=== PATIENT | male | born 2000 | race Caucasian/White ===

== ENCOUNTER 2022-07-11 22:14 | Outpatient (CLI) | payer OTHER, SELFPAY | END 2022-07-11 22:15 | disposition home or self-care (01) | LOC: AMB 08-13 19:15 | PROVIDERS: PCP Family Medicine; Visit Provider Internal Medicine | DX: R45.851 Suicidal ideations (principal) | CPT/HCPCS: A0425; A0427 ==

== ENCOUNTER 2022-07-11 22:37 | Emergency (ER) | payer OTHER, SELFPAY ==
[2022-07-11 22:46] VITALS: BP 121/78; PULSE 75; TEMP 36.6; O2SAT 95
--- NOTE | 2022-07-11 22:49 | ED.PSYCH ---
HPI - Psych General Chief Complaint: Psychiatric Problem/Disorder Stated Complaint: Mental Health Time Seen by Provider: 07/11/22 22:40 History of Present Illness HPI Narrative: Pt is a 21 year old brought in [facility] with thoughts of suicide. 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 After that performance he plans to kill himself by jumping from a height. Pt has not hurt himself to this point. No drugs or alcohol use. No self harm behaviors. No previous suicide attempts but has purposefully hit his head as a child. Pt has a history of anxiety and depression and is on Paxil 20 mg daily. No other life changes recently. Has been feeling depressed for quite some time. Related Data Home Medications Medication Instructions Recorded Confirmed paroxetine HCl 20 mg tablet mg PO 07/11/22 Allergies Allergy/AdvReac Type Severity Reaction Status Date / Time No Known Drug Allergies Allergy Verified 07/11/22 22:52 Review of Systems Status of ROS: Reports: 10 or more systems reviewed and unremarkable except as noted in History and below [facility] Medical History (Updated 07/12/22 @ 03:41 by Pablo Prieto MD) Anxiety Depression Social History Smoking Status: Never smoker Do you use any of these nicotine containing products: None Second hand tobacco smoke exposure: No How often do you have a drink containing alcohol: never How often do you have six or more drinks on one occasion: Never AUDIT-C Alcohol total score: 0 Non-prescribed substance use: denies use Exam Narrative: Exam Narrative: EXAM GENERAL: Patient appears comfortable and well. EYES: No scleral icterus. ENT: Tympanic membranes and oropharynx normal. THYROID: no thyroid nodules or thyromegaly. LYMPH: No supraclavicular or cervical lymphadenopathy. SKIN: Visible skin seen during exam normal or with benign process only. EXT: No dependent lower extremity pedal edema. HEART: Regular rate and rhythm with no murmurs, rubs, or gallops. LUNGS: Clear to auscultation bilaterally with no crackles or wheezes. ABD: Soft, non tender, non distended. PSYCH: Good eye contact, speech is not pressured. Const: Vital Signs, click to edit/add: Vital Signs - 24 hr 07/11/22 22:46 Temperature 97.8 F Pulse Rate [Left] 75 Blood Pressure [Le ft Upper Arm] 121/78 Pulse Oximetry 95 Oxygen Delivery Me thod Room Air Course Course Hospital Course: Pt seen and examined. Appropriate laboratory studies collected. DEC requested. Reevaluation(s) Reevaluation #1: Lab workup reassuring. DEC directing us to discharge. Time: 03:40 Vital Signs Vital signs: Initial Vital Signs Temperature 97.8 F 07/11/22 22:46 Temperature Source Temporal Artery Scan 07/11/22 22:46 Pulse Rate 75 07/11/22 22:46 Blood Pressure 121/78 07/11/22 22:46 Blood Pressure Mean 92 07/11/22 22:46 Blood Pressure Position Sitting 07/11/22 22:46 Pulse Oximetry 95 07/11/22 22:46 Oxygen Delivery Method 07/11/22 22:46 Vital Signs Temperature 97.8 F 07/11/22 22:46 Pulse Rate 75 07/11/22 22:46 Blood Pressure 121/78 07/11/22 22:46 Pulse Oximetry 95 07/11/22 22:46 Oxygen Delivery Method 07/11/22 22:46 Temperature 97.8 F 07/11/22 22:46 Pulse Rate 75 07/11/22 22:46 Blood Pressure 121/78 07/11/22 22:46 Pulse Oximetry 95 07/11/22 22:46 Oxygen Delivery Method 07/11/22 22:46 MDM - Psych MDM Narrative Medical decision making narrative: Pt presents with suicidal ideation. Normal lab work up. Pt seen by DEC and determined the patient can go home. Safety plan in place. Pt contracts for safety and will be discharged to home with outpt follow up. Differential Diagnosis Differential diagnosis: Likely acute psychosis, suicidal ideation, bipolar disorder, depression and acute anxiety Lab Data Labs: Lab Results 07/11/22 07/11/22 07/11/22 Range/Units 22:53 23:00 23:00 WBC 5.45 (4.50-11.00) K/uL RBC 4.54 (4.30-5.90) m/uL Hgb 14.4 (13.5-17.5) gm/dL Hct 41.7 (37.0-53.0) % MCV 92 (80-100) fL MCH 32 (26-34) pg MCHC 35 (32-36) gm/dL RDW Coeff of Tom 11.8 (11.5-15.5) % Plt Count 242 (140-440) K/uL Neut % (Auto) 57.8 (42.0-72.0) % Lymph % (Auto) 32.3 (20-44) % [place] % (Auto) 6.6 (0.0-11.0) % Eos % (Auto) 1.8 (0.0-7.0) % Baso % (Auto) 0.9 (0.0-3.0) % Neut # (Auto) 3.15 (1.7-7.0) K/uL Lymph # (Auto) 1.76 (0.90-2.90) K/uL [place] # (Auto) 0.40 (0.00-0.90) K/UL Eos # (Auto) 0.10 (0.00-0.50) K/uL Baso # (Auto) 0.05 (0.00-0.30) K/uL Abs Immat Gran (auto) 0.03 (0.00-0.30) K/uL Imm/Tot Granulo (auto) 0.6 % Sodium 139 (135-149) mmol/L Potassium 4.2 (3.6-5.1) mmol/L Chloride 102 (96-114) mmol/L Carbon Dioxide 28 (20-32) mmol/L BUN 12 (5-24) mg/dL Creatinine 1.0 (0.6-1.2) mg/dL Estimated GFR 111 ml/min Glucose 90 (60-115) mg/dL Calcium 9.6 (8.7-10.8) mg/dL Total Bilirubin 0.3 (0.1-1.5) mg/dL AST 21 (12-35) U/L ALT 16 (4-50) U/L Alkaline Phosphatase 94 (65-260) U/L Total Protein 7.8 (6.0-8.3) g/dL Albumin 5.1 H (3.3-5.0) g/dL Salicylates < 1.0 L (1.0-10) mg/dL Urine Opiates Screen (Negative) Ur Oxycodone Screen (Negative) Urine Methadone Screen (Negative) Ur Propoxyphene Screen (Negative) Acetaminophen < 10.0 L (10.0-30.0) ug/mL Ur Barbiturates Screen (Negative) U Tricyclic Antidepress (Negative) Ur Phencyclidine Scrn (Negative) Ur Amphetamines Screen (Negative) U Methamphetamines Scrn (Negative) U Benzodiazepines Scrn (Negative) Urine Cocaine Screen (Negative) U Marijuana (THC) Screen (Negative) Ur Drug Screen Comment Ethyl Alcohol < 0.01 L (0.01-0.03) % SARS-CoV-2 (PCR) Negative SARS-CoV-2 (Negative) Influenza Type A (PCR) Negative PCR FLU A (Negative) Influenza Type B (PCR) Negative PCR FLU B (Negative) 07/12/22 Range/Units 01:00 WBC (4.50-11.00) K/uL RBC (4.30-5.90) m/uL Hgb (13.5-17.5) gm/dL Hct (37.0-53.0) % MCV (80-100) fL MCH (26-34) pg MCHC (32-36) gm/dL RDW Coeff of Tom (11.5-15.5) % Plt Count (140-440) K/uL Neut % (Auto) (42.0-72.0) % Lymph % (Auto) (20-44) % [place] % (Auto) (0.0-11.0) % Eos % (Auto) (0.0-7.0) % Baso % (Auto) (0.0-3.0) % Neut # (Auto) (1.7-7.0) K/uL Lymph # (Auto) (0.90-2.90) K/uL [place] # (Auto) (0.00-0.90) K/UL Eos # (Auto) (0.00-0.50) K/uL Baso # (Auto) (0.00-0.30) K/uL Abs Immat Gran (auto) (0.00-0.30) K/uL Imm/Tot Granulo (auto) % Sodium (135-149) mmol/L Potassium (3.6-5.1) mmol/L Chloride (96-114) mmol/L Carbon Dioxide (20-32) mmol/L BUN (5-24) mg/dL Creatinine (0.6-1.2) mg/dL Estimated GFR ml/min Glucose (60-115) mg/dL Calcium (8.7-10.8) mg/dL Total Bilirubin (0.1-1.5) mg/dL AST (12-35) U/L ALT (4-50) U/L Alkaline Phosphatase (65-260) U/L Total Protein (6.0-8.3) g/dL Albumin (3.3-5.0) g/dL Salicylates (1.0-10) mg/dL Urine Opiates Screen Negative (Negative) Ur Oxycodone Screen Negative (Negative) Urine Methadone Screen Negative (Negative) Ur Propoxyphene Screen Negative (Negative) Acetaminophen (10.0-30.0) ug/mL Ur Barbiturates Screen Negative (Negative) U Tricyclic Antidepress Negative (Negative) Ur Phencyclidine Scrn Negative (Negative) Ur Amphetamines Screen Negative (Negative) U Methamphetamines Scrn Negative (Negative) U Benzodiazepines Scrn Negative (Negative) Urine Cocaine Screen Negative (Negative) U Marijuana (THC) Screen Negative (Negative) Ur Drug Screen Comment See Note Ethyl Alcohol (0.01-0.03) % SARS-CoV-2 (PCR) (Negative) Influenza Type A (PCR) (Negative) Influenza Type B (PCR) (Negative) Discharge Plan Discharge Clinical Impression: Depression Patient Disposition: Home, Self-Care Condition: Stable Instructions: Depression (ED) Additional Instructions: Instructions and follow up per AUG assessment Activity Level: No Restrictions Discharge Diet: Regular Prescriptions: No Action paroxetine HCl 20 mg tablet PO Follow Up/Referrals: Jevon Olmedo MD [Primary Care Provider] - Stand Alone Forms: Proficient Info Instructions
[2022-07-11 23:12] LABS: Basophils Absolute Auto 0.05 K/uL (0.00-0.30); Basophils Percent Auto 0.9 % (0.0-3.0); Eosinophils Percent Auto 1.8 % (0.0-7.0); Hematocrit 41.7 % (37.0-53.0); Hemoglobin* 14.4 gm/dL (13.5-17.5); Immature Granulocytes Abs Auto 0.03 K/uL (0.00-0.30); Immature Granulocytes Pct Auto 0.6 %; Lymphocytes Absolute Auto 1.76 K/uL (0.90-2.90); Lymphocytes Percent Auto 32.3 % (20-44); Mean Corpuscular HGB Conc 35 gm/dL (32-36); Mean Corpuscular Hemoglobin 32 pg (26-34); Mean Corpuscular Volume 92 fL (80-100); Monocytes Percent Auto 6.6 % (0.0-11.0); Neutrophils Absolute Auto 3.15 K/uL (1.7-7.0); Neutrophils Percent Auto 57.8 % (42.0-72.0); Platelet Count* 242 K/uL (140-440); RDW Coefficient of Variation % 11.8 % (11.5-15.5); Red Blood Count 4.54 m/uL (4.30-5.90); White Blood Count* 5.45 K/uL (4.50-11.00)
[2022-07-11 23:16] LABS: Slide Review Reflex No
[2022-07-11 23:26] LABS: Albumin* 5.1 g/dL (3.3-5.0); Chloride* 102 mmol/L (96-114); Sodium* 139 mmol/L (135-149)
[2022-07-11 23:27] LABS: Potassium* 4.2 mmol/L (3.6-5.1)
[2022-07-11 23:28] LABS: Estimated Glomerular Filt Rate 111 ml/min
[2022-07-11 23:29] LABS: Alanine Aminotransferase* 16 U/L (4-50); Alkaline Phosphatase* 94 U/L (65-260); Aspartate Amino Transferase* 21 U/L (12-35); Bilirubin Total* 0.3 mg/dL (0.1-1.5); Blood Urea Nitrogen* 12 mg/dL (5-24); Calcium* 9.6 mg/dL (8.7-10.8); Carbon Dioxide* 28 mmol/L (20-32); Glucose* 90 mg/dL (60-115); Total Protein* 7.8 g/dL (6.0-8.3)
[2022-07-11 23:30] LABS: Acetaminophen* < 10.0 ug/mL (10.0-30.0); Ethanol* < 0.01 % (0.01-0.03); Salicylate* < 1.0 mg/dL (1.0-10)
[2022-07-11 23:49] LABS: PCR FLU A Negative PCR FLU A (Negative); PCR FLU B Negative PCR FLU B (Negative)
[2022-07-11 23:51] LABS: SARS PCR* Negative SARS-CoV-2 (Negative)
--- NOTE | 2022-07-12 00:30 | ED.NURSE ---
Pt brought water and asked if he would like anything to eat. Pt states he would just like crackers at this time.
[2022-07-12 01:15] LABS: Amphetamine Screen Urine Negative (Negative); Barbiturate Screen Urine Negative (Negative); Benzodiazepines Screen Urine Negative (Negative); Cannabinoid Screen Urine Negative (Negative); Cocaine Screen Urine Negative (Negative); Methadone Screen Urine Negative (Negative); Methamphetamines Screen Urine Negative (Negative); Opiate Screen Urine Negative (Negative); Oxycodone Screen Urine Negative (Negative); Phencyclidine Screen Urine Negative (Negative); Tricyclic Antidepressant Urine Negative (Negative)
[2022-07-12 02:30] VITALS: BP 120/82; PULSE 82; RESP 16; TEMP 36.8; O2SAT 98
--- NOTE | 2022-07-12 02:30 | ED.NURSE ---
DEC assessment started.
--- NOTE | 2022-07-12 02:37 | ED.NURSE ---
Pt states he is hungry. Pt brought peanut butter sandwich, diced peaches, pudding, hot cocoa, and water. DEC assessment starting.
--- NOTE | 2022-07-12 04:18 | ED.NURSE ---
Per DEC assessment, pt to be discharged home. RN awaiting safety plan and in to check on pt. RN asks how pt is and pt states I don't think I'm going to be okay. Call to DEC metal burnisher for check up on safety plan and to express concerns that pt had told RN earlier about suicidal feelings. DEC metal burnisher asking RN to return to room and ask pt again if he is currently suicidal once more. RN in to pt room to speak to pt about suicidal thoughts and if pt will hurt himself or kill himself upon returning home. RN asks pt if he feels safe at home. Pt shrugs and states not really. RN asks pt if he will kill himself upon returning home. Pt nods head. RN asks pt if he has a plan and pt nods head and says yeah. RN asks pt what plan is, and pt shrugs shoulders and states, I have a number of ideas. RN asks pt if he would feel comfortable speaking about this again with DEC metal burnisher and pt says yes, that might be a good idea. DEC metal burnisher updated and reevaluating pt. DEC metal burnisher talking with pt and asks RN to join conversation a few minutes later. RN in room with pt and DEC metal burnisher. DEC metal burnisher speaking with pt about plan and pt again stating concerns for safety with DEC metal burnisher. RN speaking with DEC metal burnisher following reevaluation, and metal burnisher states it would be a good plan to let pt stay in ER for few more hours until daylight and reevaluate situation at that time. DEC metal burnisher states they would be more than happy to reassess pt at this time to ensure pt is safe to go home. DEC metal burnisher also states pt may be a good candidate for a crisis stabilization center, such as [facility]. updated.
--- NOTE | 2022-07-12 08:15 | ED.NURSE ---
Pt resting in bed with eyes closed. Repositioning self independently. Will allow to sleep.
[2022-07-12 08:43] VITALS: BP 111/62; PULSE 65; RESP 20; TEMP 36.4; O2SAT 94
--- NOTE | 2022-07-12 08:49 | ED.NURSE ---
Pt awake. States he is feeling so-so. Aske pt if he was still having feelings of suicide and pt stated yes. When asked about if he had a plan pt stated yes. When asked about what his plan was, pt stated I want to jump off something high. Offerered therapeutic communication and told pt that this nurse is concerned and would like for pt to find help and pt was agreeable. Dr Ramsay updated and in speaking with pt. Meal tray ordered for pt.
--- NOTE | 2022-07-12 09:01 | ED.NURSE ---
DEC contacted and pt placed in que for reassessment
--- NOTE | 2022-07-12 10:24 | ED.NURSE ---
pt continues to feel suicidal. will try to find hospitalization per AUG recommendation
--- NOTE | 2022-07-12 13:00 | ED.NURSE ---
Pt's chart faxed to [place] for review.
[2022-07-12 14:04] VITALS: BP 111/66; PULSE 73; RESP 18; TEMP 36.5; O2SAT 97
--- NOTE | 2022-07-12 14:06 | ED.NURSE ---
[facility] accepted to [facility]. EMS called for transport.
--- NOTE | 2022-07-12 14:36 | ED.NURSE ---
Report to SID Humphries at [place]. [place] [facility].
== END 2022-07-12 14:38 | disposition home or self-care (01) ==
PROVIDERS: Emergency Provider Internal Medicine; PCP Family Medicine
DX: R45.851 Suicidal ideations (principal); F41.8 Other specified anxiety disorders
CPT/HCPCS: 36415; 80053; 80143; 80179; 80306; 82077; 85025; 87631; 99283

== ENCOUNTER 2022-07-12 14:20 | Outpatient (CLI) | payer OTHER, SELFPAY | END 2022-07-12 14:21 | disposition home or self-care (01) | LOC: AMB 08-04 11:22 | PROVIDERS: PCP Family Medicine; Visit Provider Emergency Medicine Emergency Medical Services | DX: F32.9 Major depressive disorder, single episode, unspecified (principal); R45.851 Suicidal ideations | CPT/HCPCS: A0425; A0428 ==

== ENCOUNTER 2024-04-23 08:25 | Outpatient (CLI) | payer MEDICAID, SELFPAY ==
--- OUTSIDE RECORDS SUMMARY | 2024-04-24 03:31 | XMS_ITS | Encounter Summary ---
Author Organization [facility] Address [address] [place] [address] Care Team Providers Care Donor Services Technician Name Role Phone No Contact, Pcp Primary Care Provider Unavailabl e Encounter Details Date Type Department Care Team (Late st Contact Info) Description 04/23/2024 Hospital Encounter [facility] [place] Bed Planning [phone] Gabino Mckinney M.D. [address] [place] [id number] Social History Tobacco Use Types Packs/Day Years Used Date Smoking Tobacco: Never Smokeless Tobacco: Never PHQ-2 Answer Date Recorded PHQ-2 Score 0 07/15/2022 Depression Answer Date Recor ded PHQ-9 Total Score (max 27) 2 07/15 Nutrition Answer Date Recorded Nutrition: EVOO Fat Source Unknown 11/08 Nutrition: Servings of Fruits/Vegetables per Day Not on file 11/08/2020 Dental Answer Date Recorded Dental: Regular Dentist Unknown 11/09/19 23 Sex and Gender Information Value Date Recorded Sex Assigned at Not on file Gender Identity Not on file Sexual Orientation Not on file documented as of this encounter Plan of Treatment Not on file documented as of this encounter Visit Diagnoses Not on filedocumented in this encounter Additional Health Concerns Assessment Noted Time PHQ-9 Depression Total Score: 2 07/15/20 22 2:00 PM [facility] documented as of this encounter Care Teams Donor Services Technician Relationship Specialty Start Date End Date No Contact, Pcp PCP - General Family Medicine 07/12/20 documented as of this encounter
--- OUTSIDE RECORDS SUMMARY | 2024-04-24 03:31 | XMS_ITS | Encounter Summary ---
Author Organization [facility] Address [address] [place] [address] Care Team Providers Care Felt Cementer Name Role Phone No Contact, Pcp Primary Care Provider Unavailabl e Encounter Details Date Type Department Care Team (Latest Contact Info) Description 04/23/2024 Intake [facility] Social History Tobacco Use Types Packs/Day Years [...] Total Score: 2 07/15/20 22 2:00 PM PSYCHOLOGICAL AIDE documented as of this encounter Care Teams Felt Cementer Relationship Specialty Start Date End Date No Contact, Pcp PCP - General Family Medicine 07/12/20 documented as of this encounter
--- OUTSIDE RECORDS SUMMARY | 2024-04-24 03:31 | XMS_ITS | Referral Summary ---
Author Organization [facility] Address [address] [place] [address] Care Team Providers Care Enrollment Coordinator Name Role Phone No Contact, Pcp Primary Care Provider Unavailabl e Source Comments Patient records contain information from all sites at [facility]. For routine questions regarding patient records, call [phone] during business hours, M-F 8:00 AM - 5:00 PM Central Time. Record requests for emergency care only can be directed to [phone] at any time.[facility] Encounters Date Type Department Care Team Description 04/23/2024 Hospital Encounter [facility] [place] Bed Planning [phone] Gabino Mckinney M.D. 04/23/2024 Intake [facility] from Last 3 Months Allergies No known active allergies Medications Medication Sig Dispensed Refills Start Date End Date Status albuterol (PROVENTIL HFA,VENTOLIN HFA) 90 mcg/actuation inhaler Inhale 2 puffs every 4 (four) hours as needed. 11/15/2014 Active PARoxetine (PAXIL) 20 mg tablet Take 1 tablet (20 mg total) by mouth daily. 30 tablet 07/15/2022 Active traZODone (DESYREL) 50 mg tablet Take 0.5 tablets (25 mg total) by mouth at bedtime as needed for sleep. Pharmacy please provide pill cutter. 30 tablet 07/15/2022 Active Active Problems Problem Noted Date Diagnosed Date Coping Ineffective 07/15/2022 Resolved Problems Problem Noted Date Diagnosed Date Resolved Date Suicide Ideation 07/12/2022 07/16/2022 Immunizations Name Administration Dates Next Due MCV4 (Menactra)(Discontinued) 11/15/2014 Tdap 11/15/2014 Social History Tobacco Use Types Packs/Day Years [...] on file Sexual Orientation Not on file Last Filed Vital Signs Vital Sign Reading Time Taken Comments Blood Pressure 120/70 07/16/2022 9:00 AM [employer] Pulse 70 07/16/2022 9:00 AM [employer] Temperature 36.6 ??C (97.9 ??F) 07/16/2022 9:00 AM CS T Respiratory Rate 18 07/16/2022 9:00 AM [employer] Oxygen Saturation 98% 07/16/2022 9:00 AM W[employer] Inhaled Oxygen Concentration - - Weight 68 kg (149 lb 14.6 oz) 07/12/2022 5:07 PM CDT Height 177 cm (5' 9.69) 07/12/2022 5:07 PM CDT Body Mass Index 21.71 07/12/2022 5:07 PM CDT Plan of Treatment Not on file Advance Directives For more information, please contact: [phone] * Full Code (Latest Code Status on File) Date Activated Date Inactivated Comments 07/12/2022 5:34 PM 07/16/2022 1:41 PM Question Answer Comments Full Code: Not Discussed Due to: Not medically appropriate Care Teams Enrollment Coordinator Relationship Specialty Start Date End Date No Contact, Pcp PCP - General Family Medicine 07/12/20
--- OUTSIDE RECORDS SUMMARY | 2024-04-24 03:31 | XMS_ITS ---
Author Organization [facility] Address [address] [place] [address] Care Team Providers Care It Applications Analyst Name Role Phone Unavailable Unavailable Unavailable Surgery Details Not on file Complications Check Surgery Details section. Procedure Estimated Blood Loss Check Surgery Details section. Procedure Findings Check Surgery Details section. Procedure Specimens Taken Check Surgery Details section.
--- OUTSIDE RECORDS SUMMARY | 2024-04-24 03:31 | XMS_ITS | Clinical Summary ---
Author Organization [facility] Address [address] [place] [address] Care Team Providers Care Kiln Labourer Name Role Phone No Contact, Pcp Primary Care Provider Unavailabl e Source Comments Patient records contain information from all sites at [facility]. For routine questions regarding patient records, call [phone] during business hours, M-F 8:00 AM - 5:00 PM Central Time. Record requests for emergency care only can be directed to [phone] at any time.[facility] Allergies No known active allergies Medications Medication [...] Date Resolved Date Suicide Ideation 07/12/2022 07/16/2022 Encounters Date Type Department Care Team Description 04/23/2024 Hospital Encounter [facility] Bed Planning [phone] Gabino Mckinney M.D. 04/23/2024 Intake [facility] from Last 3 Months Immunizations Name Administration Dates Next Due MCV4 [...] Comments Blood Pressure 120/70 07/16/2022 9:00 AM [facility] [employer] [employer] Pulse 70 07/16/2022 9:00 AM [employer] Temperature 36.6 ??C (97.9 ??F) 07/16/2022 9:00 AM CS T Respiratory Rate 18 07/16/2022 9:00 AM [employer] Oxygen Saturation 98% 07/16/2022 9:00 AM [employer] Inhaled Oxygen Concentration - - Weight 68 kg (149 lb 14.6 oz) 07/12/2022 5:07 PM CDT Height 177 cm (5' 9.69) 07/12/2022 5:07 PM CDT Body Mass Index 21.71 07/12/2022 5:07 PM CDT Plan of Treatment Health Maintenance Due Date Last Done Comments HIV Screening 2002 Hepatitis C Screening 2002 TB Screening during Well Child Visit 2002 1 week Well Child Check-Up 2002 1 month Well Child Check-Up 2002 2 month Well Child Check-Up 2002 4 month Well Child Check-Up 01/15/2003 6 month Well Child Check-Up 03/17/2003 9 month Well Child Check-Up 06/17/2003 12 month Well Child Check-Up 09/17/2003 15 month Well Child Check-Up 12/17/2003 18 month Well Child Check-Up 03/17/2004 2 year Well Child Check-Up 09/17/2004 30 month Well Child Check-Up 03/17/2005 3 year Well Child Check-Up 09/17/2005 Well Child Check-Up Completed in Past Year 09/17/2005 4 year Well Child Check-Up 09/17/2006 5 year Well Child Check-Up 09/17/2007 6 year Well Child Check-Up 09/17/2008 7 year Well Child Check-Up 09/17/2009 8 year Well Child Check-Up 09/17/2010 9 year Well Child Check-Up 09/17/2011 10 year Well Child Check-Up 09/17/2012 11 year Well Child Check-Up 09/17/2013 12 year Well Child Check-Up 09/17/2014 13 year Well Child Check-Up 09/17/2015 14 year Well Child Check-Up 09/17/2016 15 year Well Child Check-Up 09/17/2017 16 year Well Child Check-Up 09/17/2018 17 year Well Child Check-Up 09/17/2019 18 year Well Child Check-Up 09/17/2020 19 year Well Child Check-Up 09/17/2021 20 year Well Child Check-Up 09/17/2022 COVID-19 Vaccine ( season) 2023 01/05/2023, 01/26/2021, 12/01/2020 Depression Screening (Annual PHQ-2) 09/07/2023 21 year Well Child Check-Up 09/17/2023 Well Child Check-Up ([facility]) 09/17/2023 Influenza Vaccine (#1) 2024 07/26/2007 DTaP,Tdap,and Td Vaccines (7 - Td or Tdap) 11/15/2024 11/15/2014, 05/02/2008, 06/02/2005, Additional history exists Pneumococcal vaccine (0-64 years) Aged Out 06/14/2003, 03/09/2003, 2002 No longer eligible based on patient's age to complete this topic Hepatitis B Vaccines Completed 06/02/2005, 03/09/2003, 2002 HPV Vaccines Completed 10/04/2019, 09/24/2017 Meningococcal Vaccine Completed 10/04/2019, 015 Advance Directives For more information, please contact: [phone] * Full Code (Latest Code Status on File) Date Activated Date Inactivated Comments 07/12/2022 5:34 PM 07/16/2022 1:41 PM Question Answer Comments Full Code: Not Discussed Due to: Not medically appropriate Care Teams Kiln Labourer Relationship Specialty Start Date End Date No Contact, Pcp PCP - General Family Medicine 07/12/20
== END 2024-04-23 08:26 | disposition home or self-care (01) ==
LOC: AMB 04-24 03:29
PROVIDERS: PCP Family Medicine; Visit Provider Family Medicine
DX: R45.851 Suicidal ideations (principal)
CPT/HCPCS: A0425; A0428; A0429

== ENCOUNTER 2024-04-23 09:07 | Emergency (ER) | payer MEDICAID, SELFPAY ==
[2024-04-23 09:10] VITALS: BP 112/73; PULSE 60; RESP 18; TEMP 36.1; O2SAT 97; BMI 22.2
[2024-04-23 11:04] LABS: Amphetamine Screen Urine Negative (Negative); Barbiturate Screen Urine Negative (Negative); Benzodiazepines Screen Urine Negative (Negative); Cannabinoid Screen Urine Negative (Negative); Cocaine Screen Urine Negative (Negative); Methadone Screen Urine Negative (Negative); Methamphetamines Screen Urine Negative (Negative); Opiate Screen Urine Negative (Negative); Oxycodone Screen Urine Negative (Negative); Phencyclidine Screen Urine Negative (Negative); Tricyclic Antidepressant Urine Negative (Negative)
--- NOTE | 2024-04-23 11:16 | ED_ITS ---
HPI - General Adult General Chief complaint: Psychiatric Problem/Disorder Stated complaint: Mental health Time Seen by Provider: 04/23/24 10:24 Source: patient Mode of arrival: ambulatory Limitations: no limitations History of Present Illness HPI narrative: 23-year-old male to female transitioning patient presenting today with suicidal ideation. Patient states that there is a lot going on in her life and she can not handle it. She feels like it will be easier she were gone. She has no specific plan to commit suicide. Patient was hospitalized when she was 21 for similar problems. She states that she does not have a therapist, takes no medications, has no mental health diagnoses. She states that she is currently transitioning and does see a doctor for this medical condition, does not see any other doctors including psychiatrist. States that she drinks occasionally, denies other drug use. States that she has a lot of trauma built up that no one is helping her deal with. Patient states that she does not feel safe going home at this time. Related Data Home Medications ?Medication ?Instructions ?Recorded ?Confirmed estradiol 2 mg tablet 3 mg PO BID 07/31/23 04/23/24 spironolactone 50 mg tablet 50 mg PO BID 07/31/23 04/23/24 Allergies Allergy/AdvReac Type Severity Reaction Status Date / Time No Known Drug Allergies Allergy Verified 07/31/23 16:29 Review of Systems Status of ROS: Reports: 10 or more systems reviewed and unremarkable except as noted in History and below [facility] Medical History Anxiety ?F41.9 - Anxiety disorder, unspecified (ICD-10) Depression ?F32.A - Depression, unspecified (ICD-10) Social History Smoking Status: Never smoker Do you use any of these nicotine containing products: None Second hand tobacco smoke exposure: No How often do you have a drink containing alcohol: never How often do you have six or more drinks on one occasion: Never AUDIT-C Alcohol total score: 0 Non-prescribed substance use: denies use Exam Narrative: Exam Narrative: Well-nourished well-developed patient in no acute distress. Alert and oriented. Answers questions appropriately. Mood and affect are appropriate. Thoughts are goal oriented and rational. No tangential or magical thinking noted. Patient speaks in full sentences without needing to catch her breath. HEENT: Normocephalic atraumatic. Pupils are equally round reactive to light. Extraocular muscles are intact. Conjunctivae are moist without any icterus noted. Moist mucous membranes. Posterior pharynx is normal. Neck is soft. Cardiovascular: Heart is regular rate and rhythm S1 and S2 are present without any murmurs. Lungs: Clear to auscultation bilaterally no wheezes rhonchi or rales are appreciated. Patient takes deep breaths without any discomfort. Abdomen: Soft and nontender nondistended with normal bowel sounds. No guarding or rebound. Extremities: Bilateral lower extremities are without edema. Skin: Well perfused. Const: Vital Signs, click to edit/add: Vital Signs - 24 hr 04/23/24 09:10 04/23/24 14:46 Temperature 97 F L 96.9 F L Pulse Rate 65 Pulse Rate [Pulse Oximeter] 60 Respiratory Rate 18 14 Blood Pressure 121/81 Blood Pressure [Le ft Upper Arm] 112/73 Pulse Oximetry 97 96 Oxygen Delivery Me thod Room Air Room Air Course Course ED Course: I do not feel the patient can safely go home at this time so we will look for psychiatric placement. In the meantime lab work will be drawn. Lab work shows mild anemia with a hemoglobin of 11.9. Urine drug screen is negative. Vital Signs Vital signs: Initial Vital Signs Temperature 97 F L 04/23/24 09:10 Temperature Source Temporal Artery Scan 04/23/24 09:10 Pulse Rate 60 04/23/24 09:10 Pulse Rhythm Regular 04/23/24 09:10 Respiratory Rate 18 04/23/24 09:10 Blood Pressure 112/73 04/23/24 09:10 Blood Pressure Mean 86 04/23/24 09:10 Blood Pressure Position Supine 04/23/24 09:10 Pulse Oximetry 97 04/23/24 09:10 Oxygen Delivery Method Room Air 04/23/24 09:10 Vital Signs Temperature 97 F L 04/23/24 09:10 Pulse Rate 60 04/23/24 09:10 Respiratory Rate 18 04/23/24 09:10 Blood Pressure 112/73 04/23/24 09:10 Pulse Oximetry 97 04/23/24 09:10 Oxygen Delivery Method Room Air 04/23/24 09:10 Temperature 96.9 F L 04/23/24 14:46 Pulse Rate 65 04/23/24 14:46 Respiratory Rate 14 04/23/24 14:46 Blood Pressure 121/81 04/23/24 14:46 Pulse Oximetry 96 04/23/24 14:46 Oxygen Delivery Method Room Air 04/23/24 14:46 Medical Decision Making MDM Narrative Medical decision making narrative: 23-year-old male to female transitioning patient, history of suicidal ideation, presenting with suicidal ideation today. Patient will need to be transferred to inpatient psychiatric unit. Patient has been medically cleared. Lab Data Lab results reviewed: Yes I reviewed the patient's lab results Labs: Lab Results 04/23/24 04/23/24 04/23/24 Range/Units 10:25 11:00 11:45 WBC 8.17 (4.50-11.00) K/uL RBC 3.68 L (4.30-5.90) m/uL Hgb 11.9 L (13.5-17.5) gm/dL Hct 35.0 L (37.0-53.0) % MCV 95 (80-100) fL MCH 32 (26-34) pg MCHC 34 (32-36) gm/dL RDW Coeff of Tom 12.0 (11.5-15.5) % Plt Count 206 (140-440) K/uL Neut % (Auto) 70.4 (42.0-72.0) % Lymph % (Auto) 19.7 L (20-44) % [place] % (Auto) 6.1 (0.0-11.0) % Eos % (Auto) 3.2 (0.0-7.0) % Baso % (Auto) 0.5 (0.0-3.0) % Neut # (Auto) 5.75 (1.7-7.0) K/uL Lymph # (Auto) 1.60 (0.90-2.90) K/uL [place] # (Auto) 0.50 (0.00-0.90) K/UL Eos # (Auto) 0.26 (0.00-0.50) K/uL Baso # (Auto) 0.04 (0.00-0.30) K/uL Abs Immat Gran (auto) 0.01 (0.00-0.30) K/uL Imm/Tot Granulo (auto) 0.1 % Sodium 137 (135-149) mmol/L Potassium 3.9 (3.6-5.1) mmol/L Chloride 104 (96-114) mmol/L Carbon Dioxide 25 (20-32) mmol/L Anion Gap 8 (7-15) mEq/L BUN 16 (5-24) mg/dL Creatinine 0.8 (0.5-1.5) mg/dL Estimated Creat Clear 140.57 Estimated GFR 129 ml/min Glucose 95 (60-115) mg/dL Calcium 9.1 (8.4-10.6) mg/dL Total Bilirubin 0.3 (0.1-1.5) mg/dL Direct Bilirubin 0.3 (0.0-0.5) mg/dL AST 20 (12-35) U/L ALT 14 (4-50) U/L Alkaline Phosphatase 63 (40-150) U/L Total Protein 6.5 (6.0-8.3) g/dL Albumin 3.9 (3.3-5.0) g/dL Salicylates < 1.0 L (1.0-10) mg/dL Urine Opiates Screen Negative (Negative) Ur Oxycodone Screen Negative (Negative) Urine Methadone Screen Negative (Negative) Acetaminophen < 10.0 L (10.0-30.0) ug/mL Ur Barbiturates Screen Negative (Negative) U Tricyclic Antidepress Negative (Negative) Ur Phencyclidine Scrn Negative (Negative) Ur Amphetamines Screen Negative (Negative) U Methamphetamines Scrn Negative (Negative) U Benzodiazepines Scrn Negative (Negative) Urine Cocaine Screen Negative (Negative) U Marijuana (THC) Screen Negative (Negative) Ur Drug Screen Comment See Note Ethyl Alcohol < 0.01 L (0.01-0.03) % SARS-CoV-2 (PCR) Negative SARS-CoV-2 (Negative) Discharge Plan Discharge Clinical Impression: Suicidal ideation Patient Disposition: Xfer Other Condition: Stable Prescriptions: No Action estradiol 2 mg tablet 3 mg PO BID spironolactone 50 mg tablet 50 mg PO BID Stand Alone Forms: MyHealth Info Instructions
[2024-04-23 11:54] LABS: Basophils Absolute Auto 0.04 K/uL (0.00-0.30); Basophils Percent Auto 0.5 % (0.0-3.0); Eosinophils Absolute Auto 0.26 K/uL (0.00-0.50); Eosinophils Percent Auto 3.2 % (0.0-7.0); Hemoglobin* 11.9 gm/dL (13.5-17.5); Immature Granulocytes Abs Auto 0.01 K/uL (0.00-0.30); Immature Granulocytes Pct Auto 0.1 %; Lymphocytes Percent Auto 19.7 % (20-44); Mean Corpuscular HGB Conc 34 gm/dL (32-36); Mean Corpuscular Hemoglobin 32 pg (26-34); Mean Corpuscular Volume 95 fL (80-100); Monocytes Percent Auto 6.1 % (0.0-11.0); Neutrophils Absolute Auto 5.75 K/uL (1.7-7.0); Neutrophils Percent Auto 70.4 % (42.0-72.0); Platelet Count* 206 K/uL (140-440); Red Blood Count 3.68 m/uL (4.30-5.90); White Blood Count* 8.17 K/uL (4.50-11.00)
[2024-04-23 12:01] LABS: Slide Review Reflex No
[2024-04-23 12:07] LABS: Albumin* 3.9 g/dL (3.3-5.0); Chloride* 104 mmol/L (96-114); Sodium* 137 mmol/L (135-149)
[2024-04-23 12:08] LABS: Potassium* 3.9 mmol/L (3.6-5.1)
[2024-04-23 12:09] LABS: Creatinine* 0.8 mg/dL (0.5-1.5); Est. Creatinine Clearance* 140.57; Estimated Glomerular Filt Rate 129 ml/min
[2024-04-23 12:10] LABS: Alanine Aminotransferase* 14 U/L (4-50); Alkaline Phosphatase* 63 U/L (40-150); Anion Gap 8 mEq/L (7-15); Aspartate Amino Transferase* 20 U/L (12-35); Bilirubin Direct* 0.3 mg/dL (0.0-0.5); Bilirubin Total* 0.3 mg/dL (0.1-1.5); Blood Urea Nitrogen* 16 mg/dL (5-24); Calcium* 9.1 mg/dL (8.4-10.6); Carbon Dioxide* 25 mmol/L (20-32); Glucose* 95 mg/dL (60-115); Total Protein* 6.5 g/dL (6.0-8.3)
[2024-04-23 12:12] LABS: Acetaminophen* < 10.0 ug/mL (10.0-30.0); Ethanol* < 0.01 % (0.01-0.03); Salicylate* < 1.0 mg/dL (1.0-10)
[2024-04-23 12:25] LABS: SARS PCR* Negative SARS-CoV-2 (Negative)
[2024-04-23 14:46] VITALS: BP 121/81; PULSE 65; RESP 14; TEMP 36.1; O2SAT 96
== END 2024-04-23 15:29 | disposition other institution (70) ==
PROVIDERS: Emergency Provider Family Medicine; PCP Family Medicine
DX: R45.851 Suicidal ideations (principal)
CPT/HCPCS: 36415; 80048; 80076; 80143; 80179; 80306; 82077; 85025; 87635; 99284

== ENCOUNTER 2024-04-23 15:25 | Outpatient (CLI) | payer MEDICAID, SELFPAY | END 2024-04-23 15:26 | disposition home or self-care (01) | LOC: AMB 04-24 03:34 | PROVIDERS: PCP Family Medicine; Visit Provider Family Medicine | DX: R45.851 Suicidal ideations (principal) | CPT/HCPCS: A0425; A0428; A0429 ==